=== PATIENT | female | born 1960 | race Caucasian/White ===

== ENCOUNTER 2024-04-22 12:28 | Outpatient (CLI) | payer BC, SELFPAY ==
--- NOTE | ~2024-04-22 | US_ITS ---
EXAMINATION: US FNA w image guidance DATE: 04/22/2024 13:18 INDICATION: Nontoxic single thyroid nodule TECHNIQUE: A time-out was performed to verify the patient's name, date of , and procedure to be performed . The procedure and its benefits and risks were discussed with the patient. Risks specifically discus sed included bleeding and infection. The patient understood the risks and agreed to proceed. The neck was prepped and draped in the usual sterile manner. 4 mL 1% lidocaine was used for local anesthesia . Right passes were made with a 25G needle into the lesion. Appropriate needle location was documen cezar with continuous sonographic guidance. A sterile bandage was applied. There were no immediate co mplications. FINDINGS: Grayscale ultrasound images demonstrate biopsy needles advanced into a 3.2 cm solid isoechoic TI-RADS 3 nodule in the right thyroid lobe. IMPRESSION: 1. Successful ultrasound-guided fine needle aspiration of a 3.2 cm TI-RADS 3 right thyroid nodule . Reviewed, dictated and finalized at location A. IMPRESSION: 1. Successful ultrasound-guided fine needle aspiration of a 3.2 cm TI-RADS 3 r ight thyroid nodule .
== END 2024-04-22 12:29 | disposition home or self-care (01) ==
LOC: ANHIMG 12:29
PROVIDERS: PCP Internal Medicine; Visit Provider Otolaryngology
DX: E04.1 Nontoxic single thyroid nodule (principal)
CPT/HCPCS: 10005; 88172; 88173; 88305